=== PATIENT | female | born 1950 | race Native Hawaiian/Other Pacific Islander ===

== ENCOUNTER 2017-08-08 11:30 | Outpatient (CLI) | payer MEDICARE, BC ==
[~2017-08-08] VITALS: Ht 154.9 cm; Wt 74.4 kg
[~2017-08-08 11:30] MED LIST: /ADVA50050 IN; /CLON1TA OR; ALBU17IN INH; ALBU83IN IN; ASPI81TA3 OR; CELE40TA OR; COLA100C2 OR; DILT240C3 OR; FLAG500T OR; IBUP600T OR; LOPR100T OR; LOSA100T5 PO; MECL25TA2 OR; NEUR100C OR; OMEP40CA2 PO; PERC5TAB8 OR; SING10TA31 OR; THERSOL2 OU; TIZA2TAB OR; TRAM50TA2 OR; VITA20008 PO; [UNRECOGNIZED DRUG - CODE] OR; [UNRECOGNIZED DRUG - CODE] OR; [UNRECOGNIZED DRUG - CODE] PO; clarinex OR
[2017-08-08] MEDS ORDERED: NS 1,000 ML IV ONE (11:45)
[2017-08-08] MEDS ORDERED: PROPOFOL 200 MG/20 ML VIAL As Ordered ONE (12:30)
[2017-08-08] MEDS ORDERED: LIDOCAINE 2% INJ 100 MG/5 ML SDV (FOR ANES.) As Ordered ONE (12:30)
--- NOTE | 2017-08-08 13:33 | ROOR ---
Patient Name: Seema Fang Procedure Date: 08/08/2017 1:16 PM Date of : 1950 Age: 66 Room: [facility] Gender: Female Note Status: Finalized Procedure: Upper Endoscopy + Biopsies Indications: Heartburn, Exclusion of Franklin's esophagus Providers: Aristides Hoang MD Referring MD: Yoselyn Cosme MD Requesting Provider: Medicines: Monitored Anesthesia Care Complications: No immediate complications. Procedure: Pre-Anesthesia Assessment: - The heart rate, respiratory rate, oxygen saturations, blood pressure, adequacy of pulmonary ventilation, and response to care were monitored throughout the procedure. The Endoscope was introduced through the mouth, and advanced to the second part of duodenum. The upper GI endoscopy was accomplished without difficulty. The patient tolerated the procedure well. Findings: The Z-line was irregular and was found 30 cm from the incisors. Multiple biopsies were obtained with cold forceps for evaluation to rule out Franklin's Esophagus randomly at the gastroesophageal junction. A medium-sized hiatal hernia was present. No other significant abnormalities were identified in a careful examination of the stomach. The exam of the duodenum was otherwise normal. Impression: - Z-line irregular, 30 cm from the incisors. - Medium-sized hiatal hernia. - Multiple biopsies were obtained at the gastroesophageal junction. - The examination was otherwise normal. Recommendation: - Patient has a contact number available for emergencies. The signs and symptoms of potential delayed complications were discussed with the patient. Return to normal activities tomorrow. Written discharge instructions were provided to the patient. - High fiber diet. - Discharge patient to home. - Follow an antireflux regimen. - Continue present medications. - Await pathology results. - Telephone GI clinic for pathology results in 1 week. - Return to referring physician. - The findings and recommendations were discussed with the patient's family. Aristides Hoang MD Aristides Hoang MD 08/08/2017 1:33:08 PM This report has been signed electronically. Number of Addenda: 0 Note Initiated On: 08/08/2017 1:16 PM Estimated Blood Loss: Estimated blood loss: none.
[2017-08-08 14:03] VITALS: BP 164/72
== END 2017-08-08 14:15 | disposition home or self-care (01) ==
LOC: M OPP 11:30
PROVIDERS: ATTEND Internal Medicine Gastroenterology
DX: R12 Heartburn (principal); K22.8 Other specified diseases of esophagus; K44.9 Diaphragmatic hernia without obstruction or gangrene; K31.89 Other diseases of stomach and duodenum; K21.9 Gastro-esophageal reflux disease without esophagitis; I11.9 Hypertensive heart disease without heart failure; I25.10 Atherosclerotic heart disease of native coronary artery without angina pectoris; K22.70 Barrett's esophagus without dysplasia; M19.90 Unspecified osteoarthritis, unspecified site; M51.9 Unspecified thoracic, thoracolumbar and lumbosacral intervertebral disc disorder; R42 Dizziness and giddiness; G56.02 Carpal tunnel syndrome, left upper limb; M65.812 Other synovitis and tenosynovitis, left shoulder; F41.9 Anxiety disorder, unspecified; F32.9 Major depressive disorder, single episode, unspecified; F43.10 Post-traumatic stress disorder, unspecified; J45.909 Unspecified asthma, uncomplicated; R06.83 Snoring; R35.0 Frequency of micturition; R39.15 Urgency of urination; Z87.828 Personal history of other (healed) physical injury and trauma; Z88.1 Allergy status to other antibiotic agents; Z88.8 Allergy status to other drugs, medicaments and biological substances; Z88.0 Allergy status to penicillin; Z88.2 Allergy status to sulfonamides; Z79.82 Long term (current) use of aspirin; Z79.899 Other long term (current) drug therapy; Z87.891 Personal history of nicotine dependence

== ENCOUNTER → 2021-04-02 | Outpatient (CLI) | payer MEDICARE, BC ==
[~2021-04-02] MED LIST changes: -/ADVA50050 IN; -/CLON1TA OR; +ADVA1AER2 IN; +ALBU8.5H; +ALLE10TA62 PO; +ASPI81TA26 PO; +BIMA01SOL; +CART240C3; +CITA40TA4; +CLON-412; +CLON-412 OR; +FISH1000 PO; +FLUT1BLS6; +FLUTISP; +HYDR-3490; +LEVO25TA5; +METO100T5; +MONT10TA10; -OMEP40CA2 PO; +OMEP40CA97 PO
== END ==
LOC: M LABSMTC 09:36
PROVIDERS: ATTEND Anesthesiology
DX: Z01.812 Encounter for preprocedural laboratory examination (principal); Z11.52 Encounter for screening for COVID-19

== ENCOUNTER 2021-04-07 06:37 | Day surgery (SDC) | payer MEDICARE, BC ==
[~2021-04-07] VITALS: Ht 154.9 cm; Wt 74.8 kg
[~2021-04-07 06:37] MED LIST changes: +NS 1,000 ML IV ONE
[2021-04-07] MEDS ORDERED: SIMETHICONE 40MG/0.6ML DROPS 30ML As Ordered ONE (06:41)
[2021-04-07] MEDS ORDERED: propofoL 200 MG/20 ML VIAL As Ordered ONE (06:45)
[2021-04-07] MEDS ORDERED: fentaNYL 100 MCG/2 ML INJECTION (J3010) As Ordered ONE (06:45)
[2021-04-07] MEDS ORDERED: LIDOCAINE 2% 100MG/5ML SDV (FOR ANES.) As Ordered ONE (06:45)
--- NOTE | 2021-04-07 09:07 | ROOR ---
Patient Name: Seema Fang Procedure Date: 04/07/2021 8:46 AM Date of : 1950 Age: 70 Room: [facility] Gender: Female Note Status: Finalized Procedure: Upper Endoscopy + Biopsies Indications: Heartburn, Exclusion of Franklin's esophagus Providers: Aristides Hoang MD Referring MD: Yoselyn Cosme MD Requesting Provider: Medicines: Monitored Anesthesia Care Complications: No immediate complications. Procedure: Pre-Anesthesia Assessment: - The heart rate, respiratory rate, oxygen saturations, blood pressure, adequacy of pulmonary ventilation, and response to care were monitored throughout the procedure. The Endoscope was introduced through the mouth, and advanced to the second part of duodenum. The upper GI endoscopy was accomplished without difficulty. The patient tolerated the procedure well. Findings: The Z-line was irregular and was found 35 cm from the incisors. Mildly severe esophagitis with no bleeding was found 35 cm from the incisors. Biopsies were taken with a cold forceps for histology. One cratered and superficial esophageal ulcer with no bleeding was found 35 cm from the incisors. A small hiatal hernia was present. No other significant abnormalities were identified in a careful examination of the stomach. The exam of the duodenum was otherwise normal. Impression: - Z-line irregular, 35 cm from the incisors. - Mildly severe reflux esophagitis. Rule out Franklin's esophagus. Biopsied. - Non-bleeding esophageal ulcer. - Small hiatal hernia. - The examination was otherwise normal. Recommendation: - Await pathology results. - Repeat upper endoscopy for surveillance based on pathology results. - Return to referring physician. - Discharge patient to home. - Use Prilosec (omeprazole) 40 mg PO BID. - Follow an antireflux regimen. - Await pathology results. - Telephone GI clinic for pathology results in 1 week. - Return to my office in 6 weeks. - The findings and recommendations were discussed with the patient's family. Procedure Code(s): --- Professional --- 08069, Esophagogastroduodenoscopy, flexible, transoral; with biopsy, single or multiple Diagnosis Code(s): --- Professional --- K22.8, Other specified diseases of esophagus K21.0, Gastro-esophageal reflux disease with esophagitis K22.10, Ulcer of esophagus without bleeding K44.9, Diaphragmatic hernia without obstruction or gangrene R12, Heartburn CPT copyright 2019 [employer]. All rights reserved. The codes documented in this report are preliminary and upon film spooler review may be revised to meet current compliance requirements. Aristides Hoang MD Aristides Hoang MD 04/07/2021 9:07:20 AM Electronically signed by Aristides Hoang MD Number of Addenda: 0 Note Initiated On: 04/07/2021 8:46 AM Estimated Blood Loss: Estimated blood loss: none.
[2021-04-07 09:20] VITALS: BP 128/59
== END 2021-04-07 09:30 | disposition home or self-care (01) ==
LOC: M OPP 06:37
PROVIDERS: ATTEND Internal Medicine Gastroenterology
DX: K22.8 Other specified diseases of esophagus (principal); K21.00 Gastro-esophageal reflux disease with esophagitis, without bleeding; K22.10 Ulcer of esophagus without bleeding; K44.9 Diaphragmatic hernia without obstruction or gangrene; I51.7 Cardiomegaly; Z79.82 Long term (current) use of aspirin; Z79.899 Other long term (current) drug therapy; Z88.0 Allergy status to penicillin; Z88.1 Allergy status to other antibiotic agents; Z88.8 Allergy status to other drugs, medicaments and biological substances; Z91.018 Allergy to other foods
CPT/HCPCS: 43239; 88305; J3010

== ENCOUNTER → 2023-01-11 | Outpatient (CLI) | payer MEDICARE, BC ==
[~2023-01-11] MED LIST changes: +BARIUM SULFATE 700 MG TABLET (E-Z-DISK) As Ordered ONE; +CARB1DRO11 OU; -CITA40TA4; +CITA40TA7; +E-Z-PAQUE 96% w/w SUSP 176GM BTL As Ordered ONE; -MONT10TA10; +MONT10TA97; -NS 1,000 ML IV ONE; +OMEP40CA4 PO; -OMEP40CA97 PO; -THERSOL2 OU; +VARIBAR NECTAR 40% w/v 240ML SUSP BTL As Ordered ONE; +VARIBAR PUDDING 40% w/v 230ML TUBE As Ordered ONE
== END ==
LOC: M RAD 10:23
PROVIDERS: ATTEND Otolaryngology
DX: R13.19 Other dysphagia (principal)

== ENCOUNTER → 2023-01-25 | Outpatient (CLI) | payer MEDICARE, BC ==
[~2023-01-25] MED LIST changes: -BARIUM SULFATE 700 MG TABLET (E-Z-DISK) As Ordered ONE; -E-Z-PAQUE 96% w/w SUSP 176GM BTL As Ordered ONE; +LOSA100T45; +TRAZ-252; -VARIBAR NECTAR 40% w/v 240ML SUSP BTL As Ordered ONE; -VARIBAR PUDDING 40% w/v 230ML TUBE As Ordered ONE
== END ==
LOC: M LABSMTC 08:57
PROVIDERS: ATTEND Anesthesiology
DX: Z01.812 Encounter for preprocedural laboratory examination (principal)

== ENCOUNTER 2023-01-30 11:05 | Day surgery (SDC) | payer MEDICARE, BC ==
[~2023-01-30] VITALS: Ht 152.4 cm; Wt 75.7 kg
[~2023-01-30 11:05] MED LIST changes: +LIDOCAINE 2% 100MG/5ML SDV (FOR ANES.) As Ordered ONE; +NS 1,000 ML IV ONE; +propofoL 200 MG/20 ML VIAL As Ordered ONE
[2023-01-30 13:44] VITALS: BP 159/76
== END 2023-01-30 13:47 | disposition home or self-care (01) ==
LOC: M OPP 11:05
PROVIDERS: ATTEND Internal Medicine Gastroenterology
DX: D00.1 Carcinoma in situ of esophagus (principal); K22.89 Other specified disease of esophagus; K44.9 Diaphragmatic hernia without obstruction or gangrene; J45.909 Unspecified asthma, uncomplicated; I11.9 Hypertensive heart disease without heart failure; I51.7 Cardiomegaly; Z79.02 Long term (current) use of antithrombotics/antiplatelets; Z79.51 Long term (current) use of inhaled steroids; Z79.82 Long term (current) use of aspirin; Z79.890 Hormone replacement therapy; Z79.899 Other long term (current) drug therapy; Z88.0 Allergy status to penicillin; Z88.1 Allergy status to other antibiotic agents; Z88.8 Allergy status to other drugs, medicaments and biological substances; Z91.018 Allergy to other foods; Z87.891 Personal history of nicotine dependence

== ENCOUNTER → 2023-03-06 | Outpatient (CLI) | payer MEDICARE, BC ==
[~2023-03-06] MED LIST changes: +FLUT50SP17; -FLUTISP; -LIDOCAINE 2% 100MG/5ML SDV (FOR ANES.) As Ordered ONE; -LOSA100T45; +LOSA100T46; -NS 1,000 ML IV ONE; -propofoL 200 MG/20 ML VIAL As Ordered ONE
== END ==
LOC: M PLARAD 14:01
PROVIDERS: ATTEND Surgery
DX: C15.5 Malignant neoplasm of lower third of esophagus (principal)
CPT/HCPCS: 78815; A9552

== ENCOUNTER → 2023-05-05 | Outpatient (CLI) | payer MEDICARE, BC ==
[~2023-05-05] MED LIST changes: +ATOR1TAB19 PO; +OMEP40CA5 PO; +OPTI0.5D5 OP
== END ==
LOC: M ONCR 12:29
PROVIDERS: ATTEND General Practice
DX: C15.5 Malignant neoplasm of lower third of esophagus (principal); I10 Essential (primary) hypertension; K21.9 Gastro-esophageal reflux disease without esophagitis; F41.9 Anxiety disorder, unspecified; J45.909 Unspecified asthma, uncomplicated; K22.70 Barrett's esophagus without dysplasia; H40.9 Unspecified glaucoma; Z71.2 Person consulting for explanation of examination or test findings; Z79.82 Long term (current) use of aspirin; Z79.890 Hormone replacement therapy; Z79.899 Other long term (current) drug therapy; Z87.891 Personal history of nicotine dependence; Z88.0 Allergy status to penicillin; Z88.1 Allergy status to other antibiotic agents; Z88.2 Allergy status to sulfonamides; Z88.8 Allergy status to other drugs, medicaments and biological substances; Z91.018 Allergy to other foods

== ENCOUNTER → 2023-05-31 | Outpatient (CLI) | payer MEDICARE, BC ==
[~2023-05-31] MED LIST changes: +ALBU8.5H INH; -CART240C3; +CART240C3 PO; -CITA40TA7; +CITA40TA7 PO; -CLON-412; +CLON-412 PO; +FLUT1BLS6 INH; -HYDR-3490; +HYDR-3490 PO; -LEVO25TA5; +LEVO25TA5 PO; +LIDO30CR18 TOP; +LIDOCAINE 1% MDV 20ML VIAL As Ordered ONE; +LIDOCAINE W/EPINEPHRINE 1% 20ML VIAL As Ordered ONE; -LOSA100T46; +LOSA100T46 PO; -METO100T5; +METO100T5 PO; +MIDAZOLAM INJ 2MG/2ML VIAL As Ordered ONE; +MONT10TA97 PO; +ONDA-84 PO; +PROC10TA5 PO; -TRAZ-252; +TRAZ-252 PO; +VANCOMYCIN 1000MG/20ML VIAL As Ordered ONE; +fentaNYL 100 MCG/2 ML INJECTION As Ordered ONE; +hydrALAZINE 20MG/ML 1ML VIAL As Ordered ONE
[2023-05-31 09:58] VITALS: TEMP 99
[2023-05-31 13:15] VITALS: BP 125/63; O2SAT 96
== END ==
LOC: M IRPRO 09:12
PROVIDERS: ATTEND Internal Medicine Medical Oncology
DX: C15.5 Malignant neoplasm of lower third of esophagus (principal)
CPT/HCPCS: 36561; 99152; 99153; C1769; C1788; C1894; J0360; J2250; J3010

== ENCOUNTER → 2023-07-06 | Outpatient (RCR) | payer MEDICARE, BC ==
[~2023-07-06] MED LIST changes: +DEXA4TA PO; +LIDO2SOBTL PO; -LIDOCAINE 1% MDV 20ML VIAL As Ordered ONE; -LIDOCAINE W/EPINEPHRINE 1% 20ML VIAL As Ordered ONE; +LOPE-39 PO; +MAGICMW PO; +MAGN400T2 PO; -MIDAZOLAM INJ 2MG/2ML VIAL As Ordered ONE; -VANCOMYCIN 1000MG/20ML VIAL As Ordered ONE; -fentaNYL 100 MCG/2 ML INJECTION As Ordered ONE; -hydrALAZINE 20MG/ML 1ML VIAL As Ordered ONE
== END ==
LOC: M ONCR 06-06 10:48
PROVIDERS: ATTEND General Practice
DX: Z51.0 Encounter for antineoplastic radiation therapy (principal); C15.5 Malignant neoplasm of lower third of esophagus

== ENCOUNTER → 2023-07-14 | Outpatient (CLI) | payer MEDICARE, BC | LOC: M ONCR 14:51 | PROVIDERS: ATTEND General Practice | DX: C15.5 Malignant neoplasm of lower third of esophagus (principal); Z79.52 Long term (current) use of systemic steroids; Z92.21 Personal history of antineoplastic chemotherapy; Z92.3 Personal history of irradiation ==

== ENCOUNTER → 2023-08-10 | Outpatient (CLI) | payer MEDICARE, BC | LOC: M ONCR 10:37 | PROVIDERS: ATTEND General Practice | DX: C15.5 Malignant neoplasm of lower third of esophagus (principal); Z86.16 Personal history of COVID-19; Z92.21 Personal history of antineoplastic chemotherapy; Z92.3 Personal history of irradiation ==

== ENCOUNTER → 2023-11-10 | Outpatient (CLI) | payer MEDICARE, OTHER ==
[~2023-11-10] MED LIST changes: +FERR5MLUD PO; -FLUT50SP17; +FLUTISP; +LIDO100S29 PO; -LIDO2SOBTL PO; +OPTI0.5D2 OP; -OPTI0.5D5 OP
== END ==
LOC: M ONCR 11:17
PROVIDERS: ATTEND General Practice
DX: C15.5 Malignant neoplasm of lower third of esophagus (principal); K21.9 Gastro-esophageal reflux disease without esophagitis; Z72.0 Tobacco use; Z79.82 Long term (current) use of aspirin; Z79.899 Other long term (current) drug therapy; Z88.0 Allergy status to penicillin; Z88.1 Allergy status to other antibiotic agents; Z88.2 Allergy status to sulfonamides; Z88.8 Allergy status to other drugs, medicaments and biological substances; Z91.018 Allergy to other foods; Z92.21 Personal history of antineoplastic chemotherapy; Z92.3 Personal history of irradiation; Z93.1 Gastrostomy status

== ENCOUNTER → 2024-02-14 | Outpatient (CLI) | payer MEDICARE ==
[~2024-02-14] MED LIST changes: +BENZ200C70 PO; +CLON-412; +HYDR28CR33 TOP
== END ==
LOC: M ONCR 11:26
PROVIDERS: ATTEND General Practice
DX: C15.5 Malignant neoplasm of lower third of esophagus (principal); Z71.2 Person consulting for explanation of examination or test findings; Z79.51 Long term (current) use of inhaled steroids; Z79.620 Long term (current) use of immunosuppressive biologic; Z79.82 Long term (current) use of aspirin; Z79.890 Hormone replacement therapy; Z79.899 Other long term (current) drug therapy; Z87.891 Personal history of nicotine dependence; Z88.0 Allergy status to penicillin; Z88.1 Allergy status to other antibiotic agents; Z88.2 Allergy status to sulfonamides; Z88.8 Allergy status to other drugs, medicaments and biological substances; Z91.018 Allergy to other foods; Z92.21 Personal history of antineoplastic chemotherapy; Z92.3 Personal history of irradiation

== ENCOUNTER → 2024-04-12 | Outpatient (REF) | payer MEDICARE ==
[~2024-04-12] MED LIST changes: +AUGM500T34 PO; -CLON-412; +POTA8CAP10 PO
== END ==
LOC: M LAB REF 16:38
PROVIDERS: ATTEND Nurse Practitioner
DX: Z53.9 Procedure and treatment not carried out, unspecified reason (principal)

== ENCOUNTER → 2024-05-11 | Outpatient (REF) | payer MEDICARE ==
[~2024-05-11] MED LIST changes: +ALBU2.5V10 NEB; +CYAN500T14 PO; +DIFI200T PO; +HYDR12.55 PO; +PRED1TABL PO; +ZITH500T PO
== END ==
LOC: M LAB REF 09:32
PROVIDERS: ATTEND Nurse Practitioner
DX: C16.0 Malignant neoplasm of cardia (principal); A09 Infectious gastroenteritis and colitis, unspecified; A04.72 Enterocolitis due to Clostridium difficile, not specified as recurrent

== ENCOUNTER 2024-05-13 13:01 | Day surgery (SDC) | payer MEDICARE ==
[~2024-05-13] VITALS: Ht 152.4 cm; Wt 55.8 kg
[2024-05-13] MEDS: NS 1,000 ML IV ONE (13:45)
[2024-05-13 14:46] VITALS: TEMP 98.5
[2024-05-13 15:07] VITALS: BP 154/67; O2SAT 96
== END 2024-05-13 15:14 | disposition home or self-care (01) ==
LOC: M OPP 13:01
PROVIDERS: ATTEND Internal Medicine Gastroenterology
DX: D50.9 Iron deficiency anemia, unspecified (principal); Z98.890 Other specified postprocedural states; K22.10 Ulcer of esophagus without bleeding; K22.89 Other specified disease of esophagus; Z85.01 Personal history of malignant neoplasm of esophagus; Z79.02 Long term (current) use of antithrombotics/antiplatelets; Z79.51 Long term (current) use of inhaled steroids; Z79.82 Long term (current) use of aspirin; Z79.890 Hormone replacement therapy; Z79.899 Other long term (current) drug therapy; Z88.0 Allergy status to penicillin; Z88.1 Allergy status to other antibiotic agents; Z88.2 Allergy status to sulfonamides; Z88.8 Allergy status to other drugs, medicaments and biological substances; Z91.013 Allergy to seafood; Z91.018 Allergy to other foods

== ENCOUNTER → 2024-06-21 | Outpatient (CLI) | payer MEDICARE ==
[~2024-06-21] MED LIST changes: +ASCO500T PO; +ATOV5SUS; +CEFP200T; +DOXY100C3; +ECOT81TA5 PO; +OMEGCAP4 PO; +PRED10PA PO; +PRED10TA2 PO; +SUCR1ORA PO; +THERTAB52 PO; +atovaquone PO
== END ==
LOC: M ONCR 12:55
PROVIDERS: ATTEND General Practice
DX: J70.4 Drug-induced interstitial lung disorders, unspecified (principal); T45.1X5A Adverse effect of antineoplastic and immunosuppressive drugs, initial encounter; Z85.01 Personal history of malignant neoplasm of esophagus; Z88.0 Allergy status to penicillin; Z88.1 Allergy status to other antibiotic agents; Z88.2 Allergy status to sulfonamides; Z88.8 Allergy status to other drugs, medicaments and biological substances; Z91.013 Allergy to seafood; Z91.018 Allergy to other foods; Z79.2 Long term (current) use of antibiotics; Z79.51 Long term (current) use of inhaled steroids; Z79.52 Long term (current) use of systemic steroids; Z79.82 Long term (current) use of aspirin; Z79.890 Hormone replacement therapy; Z79.899 Other long term (current) drug therapy; Z87.891 Personal history of nicotine dependence; Z92.21 Personal history of antineoplastic chemotherapy; Z92.3 Personal history of irradiation; Z98.890 Other specified postprocedural states; Z99.81 Dependence on supplemental oxygen

== ENCOUNTER → 2024-07-01 | Outpatient (CLI) | payer MEDICARE | LOC: M PLARAD 13:39 | PROVIDERS: ATTEND General Practice | DX: C16.0 Malignant neoplasm of cardia (principal) | CPT/HCPCS: 78815; A9552 ==

== ENCOUNTER → 2024-07-02 | Outpatient (CLI) | payer MEDICARE | LOC: M ONCR 10:23 | PROVIDERS: ATTEND General Practice | DX: Z08 Encounter for follow-up examination after completed treatment for malignant neoplasm (principal); Z85.01 Personal history of malignant neoplasm of esophagus; J70.4 Drug-induced interstitial lung disorders, unspecified; T45.1X5A Adverse effect of antineoplastic and immunosuppressive drugs, initial encounter; Z88.0 Allergy status to penicillin; Z88.1 Allergy status to other antibiotic agents; Z88.2 Allergy status to sulfonamides; Z88.8 Allergy status to other drugs, medicaments and biological substances; Z91.013 Allergy to seafood; Z91.018 Allergy to other foods; Z79.2 Long term (current) use of antibiotics; Z79.51 Long term (current) use of inhaled steroids; Z79.52 Long term (current) use of systemic steroids; Z79.890 Hormone replacement therapy; Z79.899 Other long term (current) drug therapy; Z87.891 Personal history of nicotine dependence; Z92.21 Personal history of antineoplastic chemotherapy; Z92.3 Personal history of irradiation; Z98.890 Other specified postprocedural states; Z99.81 Dependence on supplemental oxygen ==

== ENCOUNTER → 2024-10-02 | Outpatient (CLI) | payer MEDICARE ==
[~2024-10-02] MED LIST changes: +ALL10TAB2 PO; +ATOV5SUS PO; +PRED20TA PO
== END ==
LOC: M ONCR 11:02
PROVIDERS: ATTEND General Practice
DX: J70.2 Acute drug-induced interstitial lung disorders (principal); T45.1X5A Adverse effect of antineoplastic and immunosuppressive drugs, initial encounter; R64 Cachexia; C15.5 Malignant neoplasm of lower third of esophagus; Z87.891 Personal history of nicotine dependence; Z92.21 Personal history of antineoplastic chemotherapy; Z92.3 Personal history of irradiation; Z91.013 Allergy to seafood; Z91.018 Allergy to other foods; Z88.1 Allergy status to other antibiotic agents; Z88.2 Allergy status to sulfonamides; Z88.0 Allergy status to penicillin; Z88.8 Allergy status to other drugs, medicaments and biological substances; Z79.2 Long term (current) use of antibiotics; Z79.52 Long term (current) use of systemic steroids; Z79.82 Long term (current) use of aspirin; Z79.51 Long term (current) use of inhaled steroids; Z79.890 Hormone replacement therapy; Z79.899 Other long term (current) drug therapy

== ENCOUNTER → 2024-10-22 | Outpatient (CLI) | payer MEDICARE | LOC: M ONCR 10:38 | PROVIDERS: ATTEND General Practice | DX: C15.5 Malignant neoplasm of lower third of esophagus (principal); K83.8 Other specified diseases of biliary tract; Z87.891 Personal history of nicotine dependence; Z92.21 Personal history of antineoplastic chemotherapy; Z92.3 Personal history of irradiation; Z91.013 Allergy to seafood; Z91.018 Allergy to other foods; Z88.1 Allergy status to other antibiotic agents; Z88.2 Allergy status to sulfonamides; Z88.8 Allergy status to other drugs, medicaments and biological substances; Z88.0 Allergy status to penicillin; Z79.82 Long term (current) use of aspirin; Z79.2 Long term (current) use of antibiotics; Z79.890 Hormone replacement therapy; Z79.899 Other long term (current) drug therapy ==

== ENCOUNTER → 2024-11-22 | Outpatient (CLI) | payer MEDICARE | LOC: M ONCR 11:08 | PROVIDERS: ATTEND General Practice | DX: C15.5 Malignant neoplasm of lower third of esophagus (principal); R60.0 Localized edema; R00.1 Bradycardia, unspecified; Z87.891 Personal history of nicotine dependence; Z92.21 Personal history of antineoplastic chemotherapy; Z92.3 Personal history of irradiation; Z91.013 Allergy to seafood; Z91.018 Allergy to other foods; Z88.1 Allergy status to other antibiotic agents; Z88.2 Allergy status to sulfonamides; Z88.8 Allergy status to other drugs, medicaments and biological substances; Z79.2 Long term (current) use of antibiotics; Z79.82 Long term (current) use of aspirin; Z79.51 Long term (current) use of inhaled steroids; Z79.899 Other long term (current) drug therapy ==

== ENCOUNTER → 2025-05-22 | Outpatient (CLI) | payer MEDICARE ==
[~2025-05-22] MED LIST changes: +FERR300L12 PO; -FERR5MLUD PO; -HYDR28CR33 TOP; +HYDR28CR52 TOP; +PRED-1142 PO; -PRED1TABL PO; +SPIR1CAP INH; +VITA200038 PO
== END ==
LOC: M ONCR 11:05
PROVIDERS: ATTEND General Practice
DX: C15.5 Malignant neoplasm of lower third of esophagus (principal); R10.9 Unspecified abdominal pain; Z87.891 Personal history of nicotine dependence; Z88.0 Allergy status to penicillin; Z88.1 Allergy status to other antibiotic agents; Z88.2 Allergy status to sulfonamides; Z88.8 Allergy status to other drugs, medicaments and biological substances; Z90.09 Acquired absence of other part of head and neck; Z91.013 Allergy to seafood; Z91.018 Allergy to other foods; Z92.21 Personal history of antineoplastic chemotherapy; Z92.29 Personal history of other drug therapy; Z92.3 Personal history of irradiation

== ENCOUNTER → 2025-06-03 | Outpatient (CLI) | payer MEDICARE | LOC: M ONCM 08:30 | PROVIDERS: ATTEND Dietitian, Registered | DX: C15.5 Malignant neoplasm of lower third of esophagus (principal); Z71.3 Dietary counseling and surveillance; Z68.20 Body mass index [BMI] 20.0-20.9, adult ==

== ENCOUNTER → 2025-06-20 | Outpatient (CLI) | payer MEDICARE ==
[~2025-06-20] MED LIST changes: +DEXA2TA PO; +HYDR2TAB2 PO
== END ==
LOC: M ONCR 10:59
PROVIDERS: ATTEND General Practice
DX: C15.5 Malignant neoplasm of lower third of esophagus (principal); M25.551 Pain in right hip; Z79.82 Long term (current) use of aspirin; Z79.899 Other long term (current) drug therapy; Z87.891 Personal history of nicotine dependence; Z88.0 Allergy status to penicillin; Z88.1 Allergy status to other antibiotic agents; Z88.2 Allergy status to sulfonamides; Z91.013 Allergy to seafood; Z91.018 Allergy to other foods; Z92.21 Personal history of antineoplastic chemotherapy; Z92.3 Personal history of irradiation

== ENCOUNTER → 2025-06-30 | Outpatient (CLI) | payer MEDICARE | LOC: M PLARAD 08:26 | PROVIDERS: ATTEND General Practice | DX: C15.5 Malignant neoplasm of lower third of esophagus (principal) | CPT/HCPCS: 78815; A9552 ==

== ENCOUNTER → 2025-07-04 | Outpatient (CLI) | payer MEDICARE ==
[~2025-07-04] MED LIST changes: +CIPR750T2 PO; +METR-265 PO
== END ==
LOC: M ONCR 12:44
PROVIDERS: ATTEND General Practice
DX: Z08 Encounter for follow-up examination after completed treatment for malignant neoplasm (principal); Z85.01 Personal history of malignant neoplasm of esophagus; K59.00 Constipation, unspecified; R10.31 Right lower quadrant pain; Z79.82 Long term (current) use of aspirin; Z79.899 Other long term (current) drug therapy; Z87.891 Personal history of nicotine dependence; Z88.0 Allergy status to penicillin; Z88.1 Allergy status to other antibiotic agents; Z88.2 Allergy status to sulfonamides; Z91.018 Allergy to other foods; Z91.030 Bee allergy status; Z92.3 Personal history of irradiation

== ENCOUNTER → 2025-07-10 | Outpatient (CLI) | payer MEDICARE | LOC: M ONCR 08:16 | PROVIDERS: ATTEND General Practice | DX: R10.31 Right lower quadrant pain (principal); Z71.2 Person consulting for explanation of examination or test findings; Z79.891 Long term (current) use of opiate analgesic ==

== ENCOUNTER 2025-07-14 17:16 | Emergency (ER) | payer MEDICARE ==
[~2025-07-14] VITALS: Ht 152.4 cm; Wt 49.8 kg
[2025-07-14 19:16] LABS: BASO # 0.1 10^3/uL (0.0-0.2); BASO % 0.9 % (0.0-1.0); EOS # 0.3 10^3/uL (0.0-0.5); EOS % 3.6 % (0.0-3.0); LYMPH # 1.5 10^3/uL (1.5-5.0); LYMPH % 18.7 % (24.0-44.0); MONO # 0.9 10^3/uL (0.0-0.8); MONO % 11.0 % (2.0-8.0); NEUTROPHILS # 5.3 10^3/uL (1.5-8.5); NEUTROPHILS % 65.6 % (36.0-66.0); PLATELET COUNT, AUTOMATED 312 10^3/uL (150-450)
[2025-07-14 19:24] LABS: KETONE, URINE AUTO RFX NEGATIVE (NEGATIVE); MUCUS, URINE RFX SMALL (NEGATIVE); NITRITE, URINE AUTO RFX NEGATIVE (NEGATIVE); RBC, URINE AUTO RFX 0 /HPF (0-3); SQUAM EPITHELIAL CELL UR AURFX 1 /HPF (0-6)
[2025-07-14 19:25] LABS: LEUKOCYTE ESTERASE UR AUTO RFX 1+ (NEGATIVE); WBC, URINE AUTO RFX 19 /HPF (0-3)
[2025-07-14 19:31] LABS: ALT/SGPT 30.0 U/L (7.0-40); AST/SGOT 34.0 U/L (<34); C REACTIVE PROTEIN QUANTITATIV 0.76 MG/DL (<1.0)
[2025-07-14] MEDS: HYDROMORPHONE HCL 0.5 MG/0.5 ML SYRINGE IV ONE (19:49)
[2025-07-14] MEDS ORDERED: ISOVUE-370 76% 100 ML VIAL As Ordered ONE (20:15)
[2025-07-14 22:11] VITALS: BP 186/77; TEMP 97.8; O2SAT 98
[2025-07-16] MEDS ORDERED: DICY-61 PO (14:10)
[2025-07-16] MEDS ORDERED: PRED50TA57 PO (14:10)
== END 2025-07-14 22:15 | disposition home or self-care (01) ==
LOC: M ED 17:16
DX: R10.31 Right lower quadrant pain (principal); I10 Essential (primary) hypertension; K57.92 Diverticulitis of intestine, part unspecified, without perforation or abscess without bleeding; E03.9 Hypothyroidism, unspecified; Z85.01 Personal history of malignant neoplasm of esophagus; Z79.899 Other long term (current) drug therapy; Z79.82 Long term (current) use of aspirin; Z88.0 Allergy status to penicillin; Z88.2 Allergy status to sulfonamides; Z88.8 Allergy status to other drugs, medicaments and biological substances; Z91.018 Allergy to other foods; Z91.013 Allergy to seafood
CPT/HCPCS: 74177; 80047; 80076; 81001; 83605; 83690; 85025; 86140; 87086; 93005; 93041; 96374; 99284; J1171; Q9967

== ENCOUNTER → 2025-07-16 | Outpatient (CLI) | payer MEDICARE ==
[~2025-07-16] MED LIST changes: +DICY-61 PO; +PRED50TA57 PO
== END ==
LOC: M ONCR 13:36
PROVIDERS: ATTEND General Practice
DX: R10.31 Right lower quadrant pain (principal)

== ENCOUNTER → 2025-08-08 | Outpatient (CLI) | payer MEDICARE | LOC: M ONCR 11:01 | PROVIDERS: ATTEND General Practice | DX: C15.5 Malignant neoplasm of lower third of esophagus (principal); R10.84 Generalized abdominal pain; Z92.21 Personal history of antineoplastic chemotherapy; Z92.3 Personal history of irradiation; Z90.02 Acquired absence of larynx; Z87.891 Personal history of nicotine dependence; Z88.1 Allergy status to other antibiotic agents; Z88.2 Allergy status to sulfonamides; Z88.0 Allergy status to penicillin; Z88.8 Allergy status to other drugs, medicaments and biological substances; Z91.018 Allergy to other foods; Z91.013 Allergy to seafood; Z79.82 Long term (current) use of aspirin; Z79.51 Long term (current) use of inhaled steroids; Z79.899 Other long term (current) drug therapy ==

== ENCOUNTER 2025-09-19 07:19 | Day surgery (SDC) | payer MEDICARE ==
[~2025-09-19] VITALS: Ht 152.4 cm; Wt 49.6 kg
[2025-09-19 09:22] VITALS: TEMP 98.2
[2025-09-19 09:33] VITALS: BP 148/65; O2SAT 99
== END 2025-09-19 09:43 | disposition home or self-care (01) ==
LOC: M OPP 07:19
PROVIDERS: ATTEND Surgery
DX: D12.6 Benign neoplasm of colon, unspecified (principal); R10.31 Right lower quadrant pain; Z88.0 Allergy status to penicillin; Z88.1 Allergy status to other antibiotic agents; Z88.2 Allergy status to sulfonamides; Z88.8 Allergy status to other drugs, medicaments and biological substances; Z91.013 Allergy to seafood; Z91.018 Allergy to other foods; Z79.82 Long term (current) use of aspirin; Z79.51 Long term (current) use of inhaled steroids; Z79.899 Other long term (current) drug therapy; J45.909 Unspecified asthma, uncomplicated; Z86.73 Personal history of transient ischemic attack (TIA), and cerebral infarction without residual deficits

== ENCOUNTER → 2025-10-28 | Outpatient (CLI) | payer MEDICARE ==
[~2025-10-28] MED LIST changes: +DICY-61; +FERR325T82 PO
== END ==
LOC: M ONCR 14:23
PROVIDERS: ATTEND General Practice
DX: Z08 Encounter for follow-up examination after completed treatment for malignant neoplasm (principal); Z85.01 Personal history of malignant neoplasm of esophagus; Z92.21 Personal history of antineoplastic chemotherapy; Z92.3 Personal history of irradiation; Z87.891 Personal history of nicotine dependence; Z91.030 Bee allergy status; Z91.018 Allergy to other foods; Z88.2 Allergy status to sulfonamides; Z88.8 Allergy status to other drugs, medicaments and biological substances; Z88.0 Allergy status to penicillin; Z88.1 Allergy status to other antibiotic agents; Z79.82 Long term (current) use of aspirin; Z79.899 Other long term (current) drug therapy